=== PATIENT | female | born 1975 | race Caucasian/White ===

== ENCOUNTER 2022-11-26 12:21 | Emergency (ER) | payer BC ==
[~2022-11-26] VITALS: Ht 170.2 cm; Wt 103.0 kg
[2022-11-26 12:22] VITALS: BP_SYST 182
--- NOTE | 2022-11-26 12:27 | NUR ---
Patient triaged and placed in waiting room. VSS and patient appears in no acute distress at this time. Accompanied by SELF, awaiting available bed, and MD notified of need for MSE.
--- NOTE | 2022-11-26 12:51 | NUR ---
PT REPORTS GOING TO PCP OFFICE FOR ROUTINE VISIT AND WAS TOLD HER BP WAS HIGH. PT HAS A HEADCHAE AT THIS TIME WITH BLURRY VISION. DENIES ANY NAUSEA, CP OR SOB. SKIN W/D/I. STARTED TAKING NORVASC TODAY FOR THE FIRST TIME.
--- NOTE | 2022-11-26 13:17 | NUR ---
DR GUAN IN ROOM FOR EXAM
[2022-11-26] MEDS ORDERED: ACETAMINOPHEN 500 MG TABLET PO ONE (13:30)
[2022-11-26 15:18] VITALS: BP_SYST 149
--- NOTE | 2022-11-26 15:20 | NUR ---
Patient given written and verbal discharge instructions and verbalizes understanding. ER MD discussed with patient the results and treatment provided. Patient in stable condition. ID arm band removed. NO Rx given. Patient educated on pain management and to follow up with PMD. Pain Scale 0/10. Opportunity for questions provided and answered. Medication side effect fact sheet provided.
== END 2022-11-26 15:20 | disposition home or self-care (01) ==
LOC: SED 12:21
DX: I10 Essential (primary) hypertension (principal); R51.9 Headache, unspecified; Z79.899 Other long term (current) drug therapy
CPT/HCPCS: 99282